=== PATIENT | female | born 1980 | race Caucasian/White ===

== ENCOUNTER 2020-04-09 10:57 | Emergency (ER) | payer SELFPAY ==
[2020-04-09] VITALS (7 sets, daily range): BP systolic 107–128; BP diastolic 74–89; PULSE 78–89; RESP 15–24; TEMP 36.7; O2SAT 99–100; BMI 25.8
--- NOTE | 2020-04-09 11:13 | ED_ITS ---
HPI - Extremity Problem General Chief complaint: Extremity Problem,Nontraumatic Stated complaint: arm numbness/tingling,pains Time Seen by Provider: 04/09/20 11:13 Source: patient Mode of arrival: Ambulatory Limitations: no limitations History of Present Illness HPI Narrative: This is a 39-year-old female who comes to the emergency department with complaint of abdominal pain the 1st episode was 2 days ago which she describes as indigestion and sort of epigastric upper abdominal on both sides. She states it was quite severe and lasted about 3 hours. She states that she related it to eating some food. The pain improved overnight and she had a migraine yesterday. But was asymptomatic otherwise from her abdominal pain. She states today she ate her typical morning food and the pain returned sort of in the upper abdomen again and she had several soft bowel movements that she describes as ?hot? but not really diarrhea or constipated. She denies any fevers or chills. She did feel nauseated. She denies any vomiting. Denies any urinary symptoms. Denies any rashes or skin changing. She denies any shortness of breath or sudden onset of chest pain. She has occasionally had his fingers or sensation pain in her chest in the past. She did note some tingling in her left hand and extremity and was concerned as her grandmother from an NH at age 55. She does have a history of kidney stones denies any other medical issues. Prior breast implants, denies any other surgeries. No tobacco, alcohol or illicit. States her mother had a hysterectomy at age 40 but states her other family history is unknown. Patient states she is currently asymptomatic at this time. She is having some lower abdominal cramping she started her menses today and she did have some ibuprofen earlier today. Related Data Previous Rx's Medication Instructions Recorded omeprazole magnesium 20 mg PO DAILY #30 cap 04/09/20 Allergies Allergy/AdvReac Type Severity Reaction Status Date / Time No Known Drug Allergies Allergy Verified 04/09/20 11:05 Review of Systems Review of Systems ROS Unobtainable: All systems reviewed & are unremarkable except as noted in HPI and below Patient History Medical History (Updated 04/09/20 @ 13:57 by Joann Mckenna DO) Kidney stones (Acute) Surgical History (Updated 04/09/20 @ 11:32 by Joann C Mank, DO) Hx of breast implants, bilateral (Acute) Social History Smoking Status: Unknown if ever smoked Smoking Status: Unknown if ever smoked alcohol intake frequency: holidays/special occasions only Substance Use Type: does not use Exam Narrative Exam Narrative: GENERAL: Alert and oriented x three, well-nourished, well- appearing female in mild distress. HEENT: Head normocephalic, atraumatic, EOMI, pupils reactive, face symmetric, moist mucous membranes NECK: Supple, full range of motion CARDIOVASCULAR: Regular rate and rhythm without murmurs, rubs or gallops. RESPIRATORY: Breath sounds equal bilaterally, no wheezes rales or rhonchi. ABDOMEN: Soft, nontender to palpation. Normoactive bowel sounds all 4 quadrants. No guarding or rebound, rigidity, no mass. : No CVA tenderness EXTREMITIES: Normal range of motion, no clubbing or edema. Neurovascularly intact NEUROLOGICAL: Cranial nerves II through XII grossly intact. Moving all extremities SKIN: Warm, dry, no petechiae, no rashes or lesions. Initial Vital Signs Initial Vital Signs: Vital Signs Temperature 98.1 F 04/09/20 11:00 Pulse Rate 89 04/09/20 11:00 Respiratory Rate 16 04/09/20 11:00 Blood Pressure 128/89 04/09/20 11:00 Pulse Oximetry 100 04/09/20 11:00 Course Orders Ordered: ED Orders 04/09/20 11:07 EKG-12 Lead Stat 04/09/20 11:28 US abdomen complete Stat XR chest 1V Stat 04/09/20 11:34 Complete Blood Count AUTO DIFF Stat Comprehensive Metabolic Panel Stat Lipase Stat Troponin & CK Cardiac Panel Stat 04/09/20 12:20 Urine Microscopic Stat Vital Signs Vital signs: Vital Signs - 8 hr 04/09/20 11:00 04/09/20 12:16 04/09/20 12:18 Temperature 98.1 F Pulse Rate 89 87 83 Respiratory Rate 16 24 18 Blood Pressure 128/89 120/84 Pulse Oximetry 100 100 100 04/09/20 12:30 04/09/20 13:00 04/09/20 13:30 Temperature Pulse Rate 82 78 82 Respiratory Rate 17 15 16 Blood Pressure 116/83 107/77 110/74 Pulse Oximetry 99 99 100 04/09/20 14:00 Temperature Pulse Rate 83 Respiratory Rate 18 Blood Pressure 119/81 Pulse Oximetry 100 MDM - Extremity (Nontraumatic) Lab Data Result diagrams: 04/09/20 11:34 04/09/20 11:34 Labs: Lab Results 04/09/20 04/09/20 04/09/20 Range/Units 11:34 11:34 12:20 WBC 11.6 H (4.5-11.0) X10^3/uL RBC 4.22 (4.0-5.2) X10^6/uL Hgb 12.0 (12.0-16.0) g/dL Hct 37.4 (36-46) % MCV 88.7 (80-100) fL MCH 28.4 (26-34) PG MCHC 32.0 (30-36) % RDW 14.4 (11.6-14.8) % Plt Count 277 (150-400) X10^3/uL Neut % (Auto) 84.6 H (50-75) % Lymph % (Auto) 8.8 L (25-40) % [place] % (Auto) 5.2 (3-14) % Eos % (Auto) 0.9 L (2-4) % Baso % (Auto) 0.5 (0-2) % Neut # (Auto) 9800 H (0184-0882) /uL Lymph # (Auto) 1000 L (6109-7562) /uL [place] # (Auto) 600 (0-900) /uL Eos # (Auto) 100 (0-450) /uL Baso # (Auto) 100 (0-100) /uL Sodium 137 (137-145) mmol/L Potassium 4.2 (3.4-5.1) mmol/L Chloride 104 (98-107) mmol/L Carbon Dioxide 27 (22-32) mmol/L BUN 19 H (7-17) mg/dL Creatinine 0.77 (0.52-1.04) mg/dL Estimated GFR > 60.0 (>60) mL/min BUN/Creatinine Ratio 24.7 H (6-22) Glucose 95 (70-100) mg/dL Calcium 8.8 (8.4-10.2) mg/dL Total Bilirubin 0.5 (0.2-1.3) mg/dL AST 21 (14-36) IU/L ALT 16 (<35) IU/L Alkaline Phosphatase 63 (38-126) U/L Total Creatine Kinase 61 (30-135) U/L CK-MB (CK-2) TNP CK-MB (CK-2) Rel Index TNP Troponin I < 0.012 (0.01-0.034) ng/mL Total Protein 7.4 (6.3-8.2) g/dL Albumin 4.1 (3.5-5.0) g/dL Globulin 3.3 (1.7-4.1) g/dL Albumin/Globulin Ratio 1.2 (1.0-2.8) Lipase 107 (23-300) U/L Urine RBC 1-5/hpf (0-5/HPF) Urine WBC None seen (0-5/HPF) Urine Bacteria None seen (None) Ur Culture Indicated? Cult not indicated Point of Care Testing Test Results Negative Urine Dip Bedside Urine Glucose Negative Bedside Urine Bilirubin - Negative Bedside Urine Ketone +/- 5 Urine Specific [place] 1.020 Bedside Urine Occult Blood ++ Bedside Urine pH 6.0 Bedside Urine Protein - Negative Bedside Urine Urobilinogen - Negative Bedside Urine Nitrite - Negative Bedside Urine Leukocytes - Negative Esterase Imaging Data US - abdomen: Radiologist's Impression: Carol Holland 39 F 1980 [place] [address] Ultrasound Report Signed Patient: Carol Holland LMR#: [id number] : 1980Acct:[id number] Age/Sex: 39 / FDate of Service: 04/09/20 Loc: ED Accession Number: [id number] Procedure: US abdomen complete Ordering Provider: Joann Mckenna D.O. PROCEDURE: US ABDOMEN COMPLETE INDICATIONS: ABDOMINAL PAIN AND DIARRHEA POST-PRANDIAL TECHNIQUE: Real-time scanning was performed of the abdominal and retroperitoneal organs, with image documentation. COMPARISON: [facility], CT, KUB - CT (PNL), 10/08/2014, 11:34. [facility], CT, KIDNEY/ URETER/BLADDER, 09/29/2014, 10:21. FINDINGS: Liver: Liver is normal in size and homogeneous in echotexture. A normal portal vein is seen, with normal appearing, hepatopetal flow. Gallbladder: No findings of gallstones or sludge are seen. The gallbladder wall is not thickened, measuring 3 mm or less. No specific pericholecystic fluid is seen. The sonographic Esquivel sign is negative. Biliary ducts: Intrahepatic bile ducts are non-dilated. Extrahepatic bile duct caliber measures 1-2 mm. Normal is 6-7 mm or less in diameter, or 10 mm or less post-cholecystectomy. Pancreas: Visualized portions of the pancreas are sonographically normal. Spleen: Spleen is normal in size and homogeneous in echotexture. Kidneys: Kidneys are normal in size and echotexture. Right kidney measures 11.5 cm long; left kidney measures 10.2 cm long. No nephrolithiasis. No solid masses. No latrice hydronephrosis is seen, although trace right kidney pelvicaliectasis can be seen. Aorta: Visualized aorta is normal in caliber at less than 3 cm. Iliacs: Proximal common iliac arteries are normal in caliber at less than 2.5 cm. IVC: Intrahepatic inferior vena cava is patent. Miscellaneous: No free abdominal fluid. Overall scan quality is limited, secondary to prominent bowel gas. IMPRESSION: The gallbladder demonstrates a normal sonographic appearance. No biliary dilatation is seen. Trace right kidney pelvicaliectasis incidentally noted. Dictated by: Deven Yu M.D. on 04/09/2020 at 12:24 Approved by: Deven Yu M.D. on 04/09/2020 at 12:26 Chest x-ray: Radiologist's Impression: [address] [address] XRay Report Signed Patient: Carol Holland LMR#: [id number] : 1980Acct:[id number] Age/Sex: 39 / FDate of Service: 04/09/20 Loc: ED Accession Number: [id number] Procedure: XR chest 1V Ordering Provider: Joann Mckenna D.O. PROCEDURE: XR CHEST 1V INDICATIONS: upper abd pain, arm tingling TECHNIQUE: One view of the chest was acquired. COMPARISON: None. FINDINGS: Surgical changes and devices: None. Lungs and pleura: On this semiupright portable chest examination, no large pneumothorax or large pleural effusions are seen. No focal infiltrates are seen. Mediastinum: Mediastinal contours appear normal. Heart size is normal. Bones and chest wall: No suspicious bony lesions. Overlying soft tissues appear unremarkable. IMPRESSION: Portable chest within normal limits. Dictated by: Deven Yu M.D. on 04/09/2020 at 10:50 Approved by: Deven Yu M.D. on 04/09/2020 at 10:50 ECG Data Attestation EKG: I personally reviewed and interpreted this ECG as follows: Prior ECG tracings: not available for review Interpretation: Sinus rhythm rate 85 MS 112 QRS 88 QTC of 454. No ST elevation appreciated. No depression. No prior EKGs available. MDM Narrative Medical decision making narrative: Patient labs, imaging did not show any major changes other than hematuria which patient is currently on her menses and this is expected. Leukocytosis of 11.6 with a left shift, BUN is 19, electrolytes and renal function as well as LFTs and cardiac enzymes are all negative. EKG does not show any acute findings, chest x-ray not show any acute findings and ultrasound shows trace right kidney pelvicaliectasis. is negative. Patient's micro does not show any changes consistent with infection. Discussed findings with patient she became frustrating during discussion as there is no clear cause for her symptoms today, we did discuss the possible causes that we were attempting to rule out today. A script for omeprazole was included as patient may be having an ulcer or gastritis which may be causing symptoms, this was not discussed at length with the patient as she had become frustrated and did not wish to talk anymore and wanted to leave the department. Discharge Plan Departure Patient Disposition: Home Clinical Impression: Abdominal pain Instructions: DI for Abdominal Pain-Adult Activity Restrictions/Additional Instructions: Follow up in the next week if symptoms persist. You may take omeprazole 20mg once daily if you continue to have symptoms. Return to the ER for fevers, persistent or worsening abdominal pain, persistent vomiting, black or bloody stools, inability to have a bowel movement, passing out or other new or concerning symptoms Prescriptions: New omeprazole magnesium 20 mg capsule,delayed release(DR/EC) 20 mg PO DAILY Qty: 30 RF: 0 Referrals: Isabel Neri ARNP [Primary Care Provider] -
--- NOTE | 2020-04-09 11:28 | DI.US.S_ITS ---
PROCEDURE: US ABDOMEN COMPLETE INDICATIONS: ABDOMINAL PAIN AND DIARRHEA POST-PRANDIAL TECHNIQUE: Real-time scanning was performed of the abdominal and retroperitoneal organs, with image documentation. COMPARISON: [facility], CT, KUB - CT (PNL), 10/08/2014, 11:34. [facility], CT, KIDNEY/ URETER/BLADDER, 09/29/2014, 10:21. FINDINGS: Liver: Liver is normal in size and homogeneous in echotexture. A normal portal vein is seen, with normal appearing, hepatopetal flow. Gallbladder: No findings of gallstones or sludge are seen. The gallbladder wall is not thickened, measuring 3 mm or less. No specific pericholecystic fluid is seen. The sonographic Esquivel sign is negative. Biliary ducts: Intrahepatic bile ducts are non-dilated. Extrahepatic bile duct caliber measures 1-2 mm. Normal is 6-7 mm or less in diameter, or 10 mm or less post-cholecystectomy. Pancreas: Visualized portions of the pancreas are sonographically normal. Spleen: Spleen is normal in size and homogeneous in echotexture. Kidneys: Kidneys are normal in size and echotexture. Right kidney measures 11.5 cm long; left kidney measures 10.2 cm long. No nephrolithiasis. No solid masses. No latrice hydronephrosis is seen, although trace right kidney pelvicaliectasis can be seen. Aorta: Visualized aorta is normal in caliber at less than 3 cm. Iliacs: Proximal common iliac arteries are normal in caliber at less than 2.5 cm. IVC: Intrahepatic inferior vena cava is patent. Miscellaneous: No free abdominal fluid. Overall scan quality is limited, secondary to prominent bowel gas. IMPRESSION: The gallbladder demonstrates a normal sonographic appearance. No biliary dilatation is seen. Trace right kidney pelvicaliectasis incidentally noted. Dictated by: Deven Yu M.D. on 04/09/2020 at 12:24 Approved by: Deven Yu M.D. on 04/09/2020 at 12:26
--- NOTE | 2020-04-09 11:28 | DI.RAD.S_ITS ---
PROCEDURE: XR CHEST 1V INDICATIONS: upper abd pain, arm tingling TECHNIQUE: One view of the chest was acquired. COMPARISON: None. FINDINGS: Surgical changes and devices: None. Lungs and pleura: On this semiupright portable chest examination, no large pneumothorax or large pleural effusions are seen. No focal infiltrates are seen. Mediastinum: Mediastinal contours appear normal. Heart size is normal. Bones and chest wall: No suspicious bony lesions. Overlying soft tissues appear unremarkable. IMPRESSION: Portable chest within normal limits. Dictated by: Deven Yu M.D. on 04/09/2020 at 10:50 Approved by: Deven Yu M.D. on 04/09/2020 at 10:50
[2020-04-09 11:43] LABS: Add Manual Diff / Slide Review NO; Basophils Absolute Auto 100 /uL (0-100); Basophils Percent Auto 0.5 % (0-2); Eosinophils Absolute Auto 100 /uL (0-450); Eosinophils Percent Auto 0.9 % (2-4); Hematocrit 37.4 % (36-46); Lymphocytes Absolute Auto 1000 /uL (1100-4500); Lymphocytes Percent Auto 8.8 % (25-40); Mean Corpuscular Hemoglobin 28.4 PG (26-34); Mean Corpuscular Volume 88.7 fL (80-100); Monocytes Absolute Auto 600 /uL (0-900); Monocytes Percent Auto 5.2 % (3-14); Neutrophils Absolute Auto 9800 /uL (1500-7000); Neutrophils Percent Auto 84.6 % (50-75); Platelet Count 277 X10^3/uL (150-400); Red Blood Cell Count 4.22 X10^6/uL (4.0-5.2); Red Cell Distribution Width 14.4 % (11.6-14.8); White Blood Cell Count 11.6 X10^3/uL (4.5-11.0)
[2020-04-09 11:53] LABS: Alanine Aminotransferase 16 IU/L (<35); Albumin 4.1 g/dL (3.5-5.0); Albumin Globulin Ratio 1.2 (1.0-2.8); Alkaline Phosphatase 63 U/L (38-126); Aspartate Aminotransferase 21 IU/L (14-36); BUN Creatinine Ratio 24.7 (6-22); Bilirubin Total 0.5 mg/dL (0.2-1.3); Blood Urea Nitrogen 19 mg/dL (7-17); Calcium 8.8 mg/dL (8.4-10.2); Carbon Dioxide 27 mmol/L (22-32); Chloride 104 mmol/L (98-107); Creatine Kinase 61 U/L (30-135); Estimated Glomerular Filt Rate > 60.0 mL/min (>60); Globulin 3.3 g/dL (1.7-4.1); Glucose 95 mg/dL (70-100); HEMOLYSIS < 15 (0-50); Lipase 107 U/L (23-300); Potassium 4.2 mmol/L (3.4-5.1); Sodium 137 mmol/L (137-145); Total Protein 7.4 g/dL (6.3-8.2)
[2020-04-09 12:04] LABS: Troponin I < 0.012 ng/mL (0.01-0.034)
[2020-04-09 12:33] LABS: Bacteria Urine None Seen; WBC Urine None Seen (0-5/HPF)
[2020-04-09 12:58] LABS: Culture Indicated Urine Cult Not Indicated; RBC Urine 1-5/HPF (0-5/HPF)
== END 2020-04-09 14:10 | disposition home or self-care (01) ==
PROVIDERS: Emergency Provider Emergency Medicine; Family Provider Nurse Practitioner; PCP Nurse Practitioner
DX: R10.9 Unspecified abdominal pain (principal); R11.0 Nausea; R19.7 Diarrhea, unspecified; R20.2 Paresthesia of skin
CPT/HCPCS: 36415; 71045; 76700; 80053; 81003; 81015; 81025; 82550; 83690; 84484; 85025; 93005; 99284